=== PATIENT | male | born 1970 | race Caucasian/White ===

== ENCOUNTER 2022-04-29 10:57 | Emergency (ER) | payer OTHER ==
[~2022-04-29] VITALS: Ht 180.3 cm; Wt 79.4 kg
[2022-04-29 12:41] VITALS: BP 182/100
[2022-04-29 21:51] LABS: GC DNA AMPLIFICATION NEGATIVE (NEGATIVE)
== END 2022-04-29 13:07 | disposition home or self-care (01) ==
LOC: M ED 10:57
DX: N43.2 Other hydrocele (principal); I10 Essential (primary) hypertension; F17.200 Nicotine dependence, unspecified, uncomplicated